=== PATIENT | female | born 1995 | race Caucasian/White ===

== ENCOUNTER 2017-05-18 18:14 | Emergency (ER) | payer MEDICAID, OTHER ==
[2017-05-18 18:26] VITALS: BP 114/69
[2017-05-18] MEDS ORDERED: NS 0.9% 1000 ML* 1,000 ML IV ONE (19:22)
--- NOTE | 2017-05-18 19:22 | UC ---
- HPI Summary HPI Summary: 22 y/o female presents to the urgent care c/o nausea and vomiting for the past 3 days. Pt is 5 weeks LMP: 03/26/2017. Pt reports every time she tries to eat something she has N/V. Today she had 4 episodes of vomiting. Pt hasn't been able to eat anything, feel weak and tire today. Pt denies dizziness , SOB, vaginal bleeding, pelvic pain, abdominals pain, back pain, Hx of STD's. She states mild frequency on urination today w/o any burning or pain. Pt doesn' t have any OBGYN. - History of Current Complaint Chief Complaint: UCGI Stated Complaint: VOMITING Time Seen by Provider: 05/18/17 18:56 Hx Obtained From: Patient Chief Complaint: Other: - nausea and vomting for the past 3 days Onset/Duration: Started Days Ago - 3 days Timing: Intermittent Severity: Mild Current Severity: Moderate - 4 episodes of vomting today Pain Intensity: 0 Location of Pain: None Character: None Aggravating Factors: Other: - eating Associated Signs and Symptoms: Positive: Nausea, Urinary Symptoms - frequency on urination, Vomiting. Negative: Back Pain, Fever, Genital Swelling or Blisters, Vaginal Bleeding or Discharge - Assessment Hx Now: Yes Hx : 3 Hx Para: 1 SAB: 1 IEA: 0 History of Ectopic : No Hx Pelvic Inflammatory Disease: No Vaginal Bleeding Amount: None Hx Last Menstrual Period: 03/26/17 History of STI/STD: No - Risk Factors Ectopic Risk Factor: Negative - Additional Pertinent History Maternal Blood Type and Rh: A Positive - Allergies/Home Medications Allergies/Adverse Reactions: Allergies Allergy/AdvReac Type Severity Reaction Status Date / Time Amoxicillin Allergy Unknown Verified 05/18/17 18:16 Reaction Details Penicillins Allergy Unknown Verified 05/18/17 18:16 Reaction Details PMH/Surg Hx/FS Hx/Imm Hx Previously Healthy: Yes Endocrine/Hematology History: Denies: Hx Diabetes, Hx Thyroid Disease Cardiovascular History: Denies: Hx Hypertension Respiratory History: Denies: Hx Asthma, Hx Chronic Obstructive Pulmonary Disease (COPD) GI History: Denies: Hx Ulcer - Immunization History Immunizations Up to Date: Yes Infectious Disease History: No Infectious Disease History: Denies: Hx Clostridium Difficile, Hx Hepatitis, Hx Human Immunodeficiency Virus (HIV), Hx of Known/Suspected MRSA, Hx Shingles, Hx Tuberculosis, Hx Known/ Suspected VRE, Hx Known/Suspected VRSA, History Other Infectious Disease, Traveled Outside the [place] in Last 30 Days - Family History Known Family History: Positive: None - Pt denies any FMHX Negative: Cardiac Disease, Hypertension, Respiratory Disease, Seizure Disorder - Social History Occupation: Unemployed Lives: With Family Alcohol Use: None Hx Substance Use: No Substance Use Type: Reports: None Hx Tobacco Use: No Smoking Status (MU): Never Smoked Tobacco Have You Smoked in the Last Year: No Household Exposure: No Review of Systems Constitutional: Negative Skin: Negative Eyes: Negative ENT: Negative Respiratory: Negative Cardiovascular: Negative Gastrointestinal: Vomiting, Nausea Genitourinary: Negative Motor: Negative Neurovascular: Negative Musculoskeletal: Negative Neurological: Negative Psychological: Negative Is Patient Immunocompromised?: No All Other Systems Reviewed And Are Negative: Yes Physical Exam - Physical Exam Triage Information Reviewed: Yes Vital Signs Reviewed: Yes Appearance: Positive: Well-Appearing, No Pain Distress, Well-Nourished, Thin Skin: Positive: Warm, Skin Color Reflects Adequate Perfusion, Other - oral mucosa is moist Head/Face: Positive: Normal Head/Face Inspection Eyes: Positive: Normal, EOMI, NOEMÍ, Conjunctiva Clear ENT: Positive: Normal ENT inspection, Hearing grossly normal, Pharynx normal, TMs normal Neck: Positive: Supple, Nontender, No Lymphadenopathy Respiratory/Lung Sounds: Positive: Clear to Auscultation, Breath Sounds Present Cardiovascular: Positive: Normal, RRR, Pulses are Symmetrical in both Upper and Lower Extremities, S1, S2 Abdomen Description: Positive: Nontender, No Organomegaly, Soft. Negative: CVA Tenderness (R), CVA Tenderness (L) Bowel Sounds: Positive: Present Musculoskeletal: Positive: Normal, Strength/ROM Intact Neurological: Positive: Normal, Sensory/Motor Intact, Alert, Oriented to Person Place, Time, CN Intact II-III, Reflexes Intact Psychiatric: Positive: Normal Course/Dx - Course Course Of Treatment: 22 y/o female presents to the urgent care c/o nausea and vomiting for the past 3 days. Pt is 5 weeks LMP: 03/26/2017. Pt reports every time she tries to eat something she has N/V. Today she had 4 episodes of vomiting. Pt hasn't been able to eat anything, feel weak and tire today. Pt denies dizziness, SOB, vaginal bleeding, pelvic pain, abdominals pain , back pain, Hx of STD's. She states mild frequency on urination today w/o any burning or pain. Pt doesn't have any OBGYN.HX obtained, UA ordered. Result: Positive Ketones 3+, bilirubin 3+, Glucose 1+. test: positive. Pt mildly dehydrated. IV fluids ordered. Pt tolerated well IV fluid, still with nausea, but felt better. D/C home with Rx Diglegis. Pt given referral for OBGYN. Advised to f/u for further evaluation and treatment on her . Advised if vomiting increases despite the medication and you become dizzy please go immediately to the ER for further management. Pt understood and agreed with D/C plan. left the clinic hemodinamically stable, A&OX3. ambulating. - Differential Diagnosis/HQI/PQRI: Hyperemesis Gravidarum, Early , Renal Colic, UTI, Vaginal Bleeding - Diagnoses Provider Diagnoses: Nausea and vomiting during - Provider Notifications Discussed Care Of Patient With: Aren Katz - DR Katz agreed with PT's care and plan Discharge - Discharge Plan Condition: Stable Disposition: HOME Prescriptions: Doxylamine/Pyridoxine(NF) [Diclegis (NF)] 1 tab PO QPM #19 tab Patient Education Materials: Hyperemesis Gravidarum (ED) Referrals: [facility] [place] PHYSICIAN REFERRAL [Outside] - 2 Days Jackie Walters MD [Medical Doctor] - 2 Days No Primary Care Phys,NOPCP [Primary Care Provider] - Additional Instructions: 1-Please f/u with OBGYN Dr Stokes for further evaluation and treatment on your . Try to increase fluid intake and east small soft meals every 2hrs. 2- Please take medications as directed to alleviate nausea and vomiting 3- If vomiting increases despite the medication and you become dizzy please go immediately to the ER for further management.
--- NOTE | 2017-05-21 11:31 | UC ---
Progress - Progress Note Progress Note: Called today because the Diclegis prescribed is not covered by insurance. Ongoing nausea, last emesis yesterday. Will provide a small number of zofran, but must follow up with her hand hardener regarding management.
== END 2017-05-18 20:35 | disposition home or self-care (01) ==
LOC: UCEAST 18:14
DX: O20.9 Hemorrhage in early pregnancy, unspecified (principal); Z3A.01 Less than 8 weeks gestation of pregnancy; Z88.0 Allergy status to penicillin
CPT/HCPCS: 81003; 84702; 96360; 96361; 99212; G0463

== ENCOUNTER 2017-08-15 20:22 | Emergency (ER) | payer OTHER ==
[2017-08-15] MEDS ORDERED: Acetaminophen TAB* 325 MG PO ONE (21:07)
[2017-08-15] MEDS ORDERED: Metoclopramide IV* 5 MG/ML 2 ML VIAL IV SLOW PU ONE (21:07)
[2017-08-15 21:38] LABS: Hematocrit 35 % (35-47); Hemoglobin 11.8 g/dl (12.0-16.0); Mean Corpuscular HGB Conc 34 g/dl (31-36); Mean Corpuscular Hemoglobin 30 pg (27-31); Mean Corpuscular Volume 87 fL (80-97); Mean Platelet Volume 8 um3 (7.4-10.4); Red Blood Count 3.99 10^6/ul (4.0-5.4); Red Cell Distribution Width 13 % (10.5-15); White Blood Count 11.4 10^3/ul (3.5-10.8)
[2017-08-15 21:43] LABS: Urine Bilirubin Negative (Negative); Urine Glucose Negative (Negative); Urine Nitrite Negative (Negative)
[2017-08-15 21:53] LABS: Albumin 3.6 g/dL (3.2-5.2); BUN/Creatinine Ratio 12.5 (8-20); Calcium 8.9 mg/dL (8.6-10.3); EGFR African American 177.5 (>60); Globulin 2.9 g/dL (2-4); Potassium 3.4 mmol/L (3.5-5.0); Total Bilirubin 0.2 mg/dL (0.2-1.0); Total Protein 6.5 g/dL (6.4-8.9)
[2017-08-15 22:56] VITALS: BP 119/68
--- NOTE | 2017-08-16 08:23 | RAD ---
HISTORY: Left lower quadrant pain, . The gestational age by dates is: 20 weeks, 2 days COMPARISONS: None available at the time of dictation. TECHNIQUE: Multiple transverse and longitudinal ultrasound images were obtained of the gravid uterus using Grayscale, and M-mode Doppler imaging. FINDINGS: /PLACENTAL EVALUATION: Number of fetuses: Single Presentation: Breech cardiac activity: 136 bpm Gross motion: Observed Placenta position: Anterior Amniotic fluid volume: Normal BIOMETRY: Biparietal diameter: 4.62 cm 20 weeks, 0 days Head circumference: 18.33 cm 20 weeks, 5 days Abdominal circumference: 15.05 cm 20 weeks, 3 days Femur length: 3.35 cm 20 weeks, 4 days HC/AC: 1.22 Estimated weight: 351 grams, +/- 52 grams GESTATIONAL AGE: The composite gestational age is: 20 weeks, 3 days. The MICHELLE is: December 30, 2017. This is concordant with age by dates ANATOMY: Anatomy evaluation was performed CERVIX: The cervix is closed without funneling.. The cervix measures 2.6 cm. OTHER: None IMPRESSION: 1. SINGLE LIVE INTRAUTERINE GESTATION IN BREECH PRESENTATION AT 20 WEEKS AND 3 DAYS BY COMPOSITE GESTATIONAL AGE. 2. SHORT CERVIX
--- NOTE | 2017-08-22 05:19 | ED ---
Tyson Lawson Benjamin, scribed for Michel Knapp MD on 08/15/17 at 2050 . GI/ HPI - HPI Summary HPI Summary: 22yo female who is 20 weeks presents to ED with LUQ and left pelvic pain and dizziness for a week. Pt describes her dizziness as a combination of room spinning and near syncopal. Pt has been having acid reflux for a week as well. Pt also vomited once en route. Pt denies any vaginal discharge or bleeding but reports little bits of cramping. No urinary symptoms. This is pts 2nd . G2T1L1. - History of Current Complaint Chief Complaint: EDAbdPain Time Seen by Provider: 08/15/17 20:31 Stated Complaint: 20 WKS PREG/CRAMPING/VOMITING Hx Obtained From: Patient, Family/Supervisor [employer]aving And Splitting - family Hx Last Menstrual Period: 03/26/17 Onset/Duration: Started Days Ago, Still Present Timing: Intermittent Severity: Moderate Current Severity: Moderate Pain Intensity: 6 Location of Pain: LUQ, LLQ, Epigastric Pain Characteristics: Cramping Associated Signs and Symptoms: Positive: Dizziness, Nausea, Vomiting, Abdominal Pain. Negative: Diarrhea, Fever, Hematuria, Dysuria Additional Signs & Symptoms: Negative: Vaginal Bleeding, Vaginal Discharge - Allergy/Home Medications Allergies/Adverse Reactions: Allergies Allergy/AdvReac Type Severity Reaction Status Date / Time Amoxicillin Allergy Unknown Verified 08/15/17 20:45 Reaction Details Penicillins Allergy Unknown Verified 08/15/17 20:45 Reaction Details PMH/Surg Hx/FS Hx/Imm Hx Endocrine/Hematology History: Denies: Hx Diabetes, Hx Thyroid Disease Cardiovascular History: Denies: Hx Hypertension Respiratory History: Denies: Hx Asthma, Hx Chronic Obstructive Pulmonary Disease (COPD) GI History: Denies: Hx Ulcer Infectious Disease History: No Infectious Disease History: Denies: Hx Clostridium Difficile, Hx Hepatitis, Hx Human Immunodeficiency Virus (HIV), Hx of Known/Suspected MRSA, Hx Shingles, Hx Tuberculosis, Hx Known/ Suspected VRE, Hx Known/Suspected VRSA, History Other Infectious Disease, Traveled Outside the [place] in Last 30 Days - Family History Known Family History: Negative: Cardiac Disease, Hypertension, Respiratory Disease, Seizure Disorder - Social History Lives: With Family Alcohol Use: None Hx Substance Use: No Substance Use Type: Reports: None Hx Tobacco Use: No Smoking Status (MU): Never Smoked Tobacco Have You Smoked in the Last Year: No Review of Systems Constitutional: Negative Negative: Fever Eyes: Negative ENT: Negative Cardiovascular: Negative Respiratory: Negative Positive: Abdominal Pain, Vomiting, Nausea. Negative: Diarrhea Genitourinary: Negative Positive: no symptoms reported Musculoskeletal: Negative Skin: Negative Neurological: Other - room spinning Positive: Syncope - near Psychological: Normal All Other Systems Reviewed And Are Negative: Yes Physical Exam - Summary Physical Exam Summary: VITAL SIGNS: Reviewed. GENERAL: ~Patient is a well-developed and nourished FEMALE who is lying comfortable in the stretcher. Patient is not in any acute respiratory distress. HEAD AND FACE: No signs of trauma. No ecchymosis, hematomas or skull depressions. No sinus tenderness. EYES: PERRLA, EOMI x 2, No injected conjunctiva, no nystagmus. EARS: Hearing grossly intact. Ear canals and tympanic membranes are within normal limits. MOUTH: Oropharynx within normal limits. NECK: Supple, trachea is midline, no adenopathy, no JVD, no carotid bruit, no c- spine tenderness, neck with full ROM. CHEST: Symmetric, no tenderness at palpation LUNGS: Clear to auscultation bilaterally. No wheezing or crackles. CVS: Regular rate and rhythm, S1 and S2 present, no murmurs or gallops appreciated. ABDOMEN: Soft, LUQ tenderness. No signs of distention. No rebound no guarding, and no masses palpated. Bowel sounds are normal. Fundal level in umbilicus. EXTREMITIES: FROM in all major joints, no edema, no cyanosis or clubbing. NEURO: Alert and oriented x 3. No acute neurological deficits. Speech is normal and follows commands. SKIN: Dry and warm Triage Information Reviewed: Yes Vital Signs On Initial Exam: Initial Vitals Temp Pulse Resp BP Pulse Ox 97.8 F 92 16 144/74 100 08/15/17 20:25 08/15/17 20:25 08/15/17 20:25 08/15/17 20:25 08/15/17 20:25 Vital Signs Reviewed: Yes - [place] Coma Scale Coma Scale Total: 15 Diagnostics - Vital Signs Vital Signs Temp Pulse Resp BP Pulse Ox 08/15/17 20:47 127/80 08/15/17 20:25 97.8 F 92 16 144/74 100 - Laboratory Result Diagrams: 08/15/17 21:27 08/15/17 21:27 Lab Statement: Any lab studies that have been ordered have been reviewed, and results considered in the medical decision making process. - Ultrasound No standard instances Ultrasound Interpretation: No Acute Changes Ultrasound Interpretation Completed By: Radiologist - ED physician has reviewed this radiology report and agrees. Re-Evaluation - Re-Evaluation First Eval Re-Evaluation Time: 22:48 Change: Improved Comment: Dizziness is improved. Reviewed pt's bloodwork abnd US report. GIGU Course/Dx - Course Course Of Treatment: Dizziness is improved. Reviewed pt's bloodwork abnd US report. - Diagnoses Provider Diagnoses: Dizziness, Second trimester Discharge - Discharge Plan Condition: Stable Disposition: HOME Patient Education Materials: (ED), Dizziness (ED) Referrals: No Primary Care Phys,NOPCP [Primary Care Provider] - Jackie Walters MD [Medical Doctor] - Additional Instructions: RETURN TO EMERGENCY DEPARTMENT FOR ANY NEW OR WORSENING SYMPTOMS The documentation as recorded by the Tyson moya Benjamin accurately reflects the service I personally performed and the decisions made by , Michel Knapp MD.
== END 2017-08-15 22:54 | disposition home or self-care (01) ==
LOC: ED 20:22
DX: O26.92 Pregnancy related conditions, unspecified, second trimester (principal); R42 Dizziness and giddiness; Z3A.20 20 weeks gestation of pregnancy; Z88.0 Allergy status to penicillin
CPT/HCPCS: 36415; 76815; 80053; 81003; 85025; 99282; A9270-GY; J2765

== ENCOUNTER 2017-09-06 16:03 | Emergency (ER) | payer OTHER ==
--- NOTE | 2017-09-06 17:39 | RAD ---
INDICATION: Right leg pain. COMPARISON: There are no prior studies available for comparison. TECHNIQUE: Multiple real-time, color flow and Doppler tracings of the right lower extremity were obtained. FINDINGS: The common femoral, femoral, profunda femoral and popliteal veins all demonstrate normal compressibility, augmentation with compression and phasic response with respiration. The posterior tibial and peroneal veins demonstrate normal compressibility and augmentation with compression. IMPRESSION: NO EVIDENCE FOR DEEP VENOUS THROMBOSIS.
[2017-09-06 17:52] LABS: ABS Basophils 0 10^3/ul (0-0.2); ABS Eosinophils 0.1 10^3/ul (0-0.6); ABS Lymphocytes 2.4 10^3/ul (1.0-4.8); ABS Monocytes 0.8 10^3/ul (0-0.8); ABS Neutrophils 7.8 10^3/ul (1.5-7.7); ABS Nucleated RBC 0.01 10^3/ul; Eosinophil % 0.7 % (0-6); Hematocrit 35 % (35-47); Hemoglobin 11.6 g/dl (12.0-16.0); Lymphocyte % 21.9 % (25-47); Mean Corpuscular HGB Conc 33 g/dl (31-36); Mean Corpuscular Hemoglobin 29 pg (27-31); Mean Corpuscular Volume 87 fL (80-97); Mean Platelet Volume 8 um3 (7.4-10.4); Nucleated Red Blood Cells % 0; Platelet Count 267 10^3/ul (150-450); Red Blood Count 4.02 10^6/ul (4.0-5.4); Red Cell Distribution Width 13 % (10.5-15); White Blood Count 11.1 10^3/ul (3.5-10.8)
[2017-09-06 17:58] LABS: INR 0.9 (0.77-1.02)
[2017-09-06 18:04] LABS: EGFR Non-African American 132.5 (>60)
[2017-09-06 18:31] VITALS: BP 108/65
--- NOTE | 2017-09-06 18:37 | ED ---
Moustapha Lawson Angela, scribed for Jessy Gonsalez MD on 09/06/17 at 1701 . Lower Extremity - HPI Summary HPI Summary: This pt is a 22 y/o female, currently 23 weeks , presenting to [facility] c/o right leg pain x6 days (since , 08/31/17). Pt was sent to the ED by her Php Architect to rule out DVT. Per Php Architect Angela BEATTY, pt has placenta previa and has been having dizziness episodes. Pt is due on December 31, 2017. Pt reports she originally had a bruise on her right thigh but has now resolved. She states her pain is from he right upper thigh down to her calf. Pt additionally notes it is harder to breathe, but denies SOB. [facility] [place] Pt reports she has been having dizzy spells before her leg pain began, throughout her . She was referred to a trim setter for this. Pt was seen by Dr. Adalberto Ravi on 09/01/17 who recommended a stress test and holter monitor. Pt has a stress test scheduled for tomorrow. Pt takes vitamins every day. Allergies: amoxicillin and penicillin. She denies FHx of blood clots. - History of Current Complaint Chief Complaint: EDExtremityLower Stated Complaint: PAIN IN LT LEG/23 WKS PREG Time Seen by Provider: 09/06/17 16:10 Hx Obtained From: Patient, Other: - Angela, director presales at [place] [employer] Hx Last Menstrual Period: 03/26/17 Mechanism Of Injury: Other - no trauma Onset of Pain: Days - 6 Onset/Duration: Days - 6 Severity Initially: Moderate Severity Currently: Moderate Pain Intensity: 8 Pain Scale Used: 0-10 Numeric Timing: Lasting Days - 6 Location: Is Discrete @ - right leg Character Of Pain: Aching Associated Signs And Symptoms: Positive: Bruising, Dizziness, Other - harder to breathe Aggravating Factor(s): Nothing Alleviating Factor(s): Nothing Able to Bear Weight: Yes Related History: Other - 23 weeks - Allergies/Home Medications Allergies/Adverse Reactions: Allergies Allergy/AdvReac Type Severity Reaction Status Date / Time Amoxicillin Allergy Unknown Verified 08/15/17 20:45 Reaction Details Penicillins Allergy Unknown Verified 08/15/17 20:45 Reaction Details PMH/Surg Hx/FS Hx/Imm Hx Previously Healthy: Yes Endocrine/Hematology History: Denies: Hx Diabetes, Hx Thyroid Disease Cardiovascular History: Denies: Hx Hypertension Respiratory History: Denies: Hx Asthma, Hx Chronic Obstructive Pulmonary Disease (COPD) GI History: Denies: Hx Ulcer - Surgical History Surgery Procedure, Year, and Place: none Infectious Disease History: No Infectious Disease History: Denies: Hx Clostridium Difficile, Hx Hepatitis, Hx Human Immunodeficiency Virus (HIV), Hx of Known/Suspected MRSA, Hx Shingles, Hx Tuberculosis, Hx Known/ Suspected VRE, Hx Known/Suspected VRSA, History Other Infectious Disease, Traveled Outside the [place] in Last 30 Days - Family History Known Family History: Positive: Other - No FHx of blood clots Negative: Cardiac Disease, Hypertension, Respiratory Disease, Seizure Disorder - Social History Lives: With Family Alcohol Use: None Hx Substance Use: No Substance Use Type: Reports: None Hx Tobacco Use: No Smoking Status (MU): Never Smoked Tobacco Have You Smoked in the Last Year: No Review of Systems Negative: Fever, Chills Negative: Chest Pain Respiratory: Other - harder to breathe Musculoskeletal: Other - right leg pain Positive: Bruising Neurological: Other - dizziness Psychological: Normal All Other Systems Reviewed And Are Negative: Yes Physical Exam - Summary Physical Exam Summary: Appearance: Well-appearing, mod pain distress, Well-nourished, Skin: Warm, color reflects adequate perfusion Head: Normal Head/Face inspection Eyes: Conjunctiva clear ENT: Normal ENT inspection Neck: Supple Respiratory: Lungs clear, Normal breath sounds, no respiratory distress Cardio: RRR, No murmur, pulses normal, brisk capillary refill Abdomen: soft, nontender, Musculoskeletal: Strength Intact/ ROM intact. No edema. Tenderness on the medial thigh into the medial calf, proximal third of the calf. More tender on the medial aspect of the right knee and the tibia. No ecchymosis. No warmth. No red streaks. Neuro: Alert, muscle tone normal, facial symmetry, speech normal, sensory/motor intact Psychological: Normal Triage Information Reviewed: Yes Vital Signs On Initial Exam: Initial Vitals Temp Pulse Resp BP Pulse Ox 99.1 F 93 18 120/71 100 09/06/17 16:07 09/06/17 16:07 09/06/17 16:07 09/06/17 16:07 09/06/17 16:07 Vital Signs Reviewed: Yes Diagnostics - Vital Signs Vital Signs Temp Pulse Resp BP Pulse Ox 09/06/17 16:07 99.1 F 93 18 120/71 100 - Laboratory Lab Results: Lab Results 09/06/17 09/06/17 09/06/17 Range/Units 17:36 17:36 17:36 WBC 11.1 H (3.5-10.8) 10^3/ul RBC 4.02 (4.0-5.4) 10^6/ul Hgb 11.6 L (12.0-16.0) g/dl Hct 35 (35-47) % MCV 87 (80-97) fL MCH 29 (27-31) pg MCHC 33 (31-36) g/dl RDW 13 (10.5-15) % Plt Count 267 (150-450) 10^3/ul MPV 8 (7.4-10.4) um3 Neut % (Auto) 70.0 (38-83) % Lymph % (Auto) 21.9 L (25-47) % [place] % (Auto) 7.0 (1-9) % Eos % (Auto) 0.7 (0-6) % Baso % (Auto) 0.4 (0-2) % Absolute Neuts (auto) 7.8 H (1.5-7.7) 10^3/ul Absolute Lymphs (auto) 2.4 (1.0-4.8) 10^3/ul Absolute Monos (auto) 0.8 (0-0.8) 10^3/ul Absolute Eos (auto) 0.1 (0-0.6) 10^3/ul Absolute Basos (auto) 0 (0-0.2) 10^3/ul Absolute Nucleated RBC 0.01 10^3/ul Nucleated RBC % 0 INR (Anticoag Therapy) 0.90 (0.77-1.02) Sodium 134 (133-145) mmol/L Potassium 3.8 (3.5-5.0) mmol/L Chloride 104 (101-111) mmol/L Carbon Dioxide 25 (22-32) mmol/L Anion Gap 5 (2-11) mmol/L BUN 9 (6-24) mg/dL Creatinine 0.58 (0.51-0.95) mg/dL Est GFR ( Amer) 170.5 (>60) Est GFR (Non-Af Amer) 132.5 (>60) BUN/Creatinine Ratio 15.5 (8-20) Glucose 78 (70-100) mg/dL Calcium 9.2 (8.6-10.3) mg/dL Total Bilirubin 0.20 (0.2-1.0) mg/dL AST 14 (13-39) U/L ALT 8 (7-52) U/L Alkaline Phosphatase 38 (34-104) U/L Total Protein 6.9 (6.4-8.9) g/dL Albumin 3.8 (3.2-5.2) g/dL Globulin 3.1 (2-4) g/dL Albumin/Globulin Ratio 1.2 (1-3) Result Diagrams: 09/06/17 17:36 09/06/17 17:36 Lab Statement: Any lab studies that have been ordered have been reviewed, and results considered in the medical decision making process. - Additional Comments Diagnostic Additional Comments: Venous Doppler Study, Right, as read by radiologist: IMPRESSION: No evidence for deep venous thrombosis. Dr. Gonsalez has reviewed this radiology report. Re-Evaluation - Re-Evaluation First Eval Re-Evaluation Time: 18:23 Change: Unchanged Comment: I reviewed the doppler venous study with the pt. Lower Extremity Course/Dx - Course Course Of Treatment: Pt medications reviewed this visit. Allergies noted. Deep venous study shows no evidence for deep venous thrombosis. I reviewed the deep venous doppler study results with the pt. Pt is advised to follow up with her ObGyn as scheduled. Pt understands and is agreeable with the discharge plan. She will follow up with the cardiac evaluation as recommended. - Diagnoses Differential Diagnosis/HQI/PQRI: Positive: Cellulitis, Contusion, DVT, Sprain, Strain Provider Diagnoses: Pain in right lower leg, Discharge - Discharge Plan Condition: Stable Disposition: HOME Patient Education Materials: Leg Pain (ED) Referrals: Kamilla Dotson MD [Medical Doctor] - If Needed Additional Instructions: Return to the ER if any new or worsening symptoms. The documentation as recorded by the Moustapha moya Angela accurately reflects the service I personally performed and the decisions made by Wallace seo Barbara J, MD.
== END 2017-09-06 18:30 | disposition home or self-care (01) ==
LOC: ED 16:03
DX: M79.661 Pain in right lower leg (principal); Z34.92 Encounter for supervision of normal pregnancy, unspecified, second trimester; R42 Dizziness and giddiness
CPT/HCPCS: 36415; 80053; 85025; 85610; 99281

== ENCOUNTER 2017-12-28 01:05 | Inpatient (IN) | payer OTHER ==
[2017-12-28] MEDS ORDERED: Ammonia Inhalant* 1 EA AMP ONE (04:45)
[2017-12-28] MEDS ORDERED: Witch Hazel PAD* JAR ONE (04:46)
[2017-12-28] MEDS ORDERED: Dibucaine 1% 28.35 GM TUBE ONE (04:46)
[2017-12-28] MEDS ORDERED: Ibuprofen TAB* 600 MG ONE (04:46)
[2017-12-28] MEDS ORDERED: Witch Hazel PAD* JAR TOPICAL PRN (04:52)
[2017-12-28] MEDS ORDERED: Acetaminophen TAB* 325 MG PO PRN (04:53)
[2017-12-28] MEDS ORDERED: Hydrocortisone 1% CREAM* 30 GM TUBE TOPICAL PRN (04:53)
[2017-12-28] MEDS ORDERED: Dibucaine 1% 28.35 GM TUBE TOPICAL PRN (04:54)
[2017-12-28] MEDS ORDERED: Ibuprofen TAB* 600 MG PO PRN (04:54)
[2017-12-28] MEDS ORDERED: PROCHLORPERAZINE INJ 5 MG/ML 2 ML VIAL IV PRN (04:55)
[2017-12-28] MEDS ORDERED: Simethicone TAB* 80 MG TAB.CHEW PO PRN (04:56)
[2017-12-28] MEDS ORDERED: Buffered Lidocaine 0.9% SYRIN* 5 ML/SYR SYRINGE INJ PRN (04:57)
[2017-12-28] MEDS ORDERED: Glycerin ADULT SUPP PR PRN (04:57)
[2017-12-28] MEDS ORDERED: Varicella Virus Vaccine Live* 0.5 ML VIAL SUBCUT ONE (05:00)
[2017-12-28] MEDS: Docusate CAP* 100 MG PO SCH ×2 (08:55→14:40)
[2017-12-28] MEDS ORDERED: Ferrous Gluconate TAB* 324 MG TAB PO SCH (09:00)
--- NOTE | 2017-12-28 10:48 | HP ---
General Information - General Information Maternal Age: 22 Grav: 3 Para: 1 SAB: 0 IEA: 1 Estimated Due Date: 12/31/17 Determined By: LMP Gestational Age in Weeks and Days: 39 Weeks and 4 Days Maternal Blood Type and Rh: A Positive - Results this Serology/RPR Result: Non-Reactive Rubella Result: Immune HBsAg Result: Negative HIV Result: Negative GBS Culture Result: Negative Past Medical History Delivery History: Hx Uncomplicated Vaginal Delivery Pertinent Past Medical History: Non-Contributory Pertinent Past Surgical History: None Pertinent Family History: Non-Contributory - Antepartal Records Antepartal Records: Reviewed, Uncomplicated Review of Systems Constitutional: Uncomfortable CV Complaint: No Respiratory: Shortness of Breath: No Gastrointestinal: No Nausea/Vomiting Genitourinary: No Dysuria, No Leaking Fluid Musculoskeletal: Back Pain, Contractions Neurological: No Headache Exam Allergies/Adverse Reactions: Allergies amoxicillin Allergy (Verified 12/05/17 14:29) Rash Penicillins Allergy (Verified 12/05/17 14:29) Rash Vital Signs 12/28/17 12/28/17 12/28/17 03:30 04:27 05:30 Temperature 98.7 F 98.3 F 98.8 F Pulse Rate 86 93 88 Respiratory 18 18 18 Rate Blood Pressure 124/76 129/69 118/68 (mmHg) O2 Sat by Pulse 100 100 99 Oximetry 12/28/17 12/28/17 06:30 07:33 Temperature 98.3 F 98.2 F Pulse Rate 88 82 Respiratory 18 18 Rate Blood Pressure 102/50 118/72 (mmHg) O2 Sat by Pulse Oximetry - Measurements Height: 5 ft Weight: 140 lb Weight in lbs: 140 Body Mass Index (BMI): 27.3 Pre- Weight: 107 lb Weight Gained This : 33 lbs and 0 ozs - Cervical Exam 8/100/0 - Abdominal Exam Abdomen Exam: Non-Tender - Membranes Membrane Status: Intact - Ultrasound/Biophysical Profile Ultrasound Status: Not Done EFM Findings - External Monitor Findings Baseline Heart Rate: 120 External Monitor Findings: Accelerations Present, No Pattern of Variable or Late Decelerations, Variability Moderate Contractions: Regular Contraction Frequency: 2-3 Assessment/Plan - Reason for Visit Reason for Visit: Active labor - Plan Plan: Active Labor - Date/Time of Admission Date of Admission: 12/28/17 Time of Admission: 01:00
[2017-12-28] MEDS ORDERED: Ibuprofen ADULT LIQ* 600 MG/30 ML UDC ONE (17:50)
[2017-12-28] MEDS: Ibuprofen ADULT LIQ* 600 MG/30 ML UDC PO PRN (18:05)
[2017-12-29] MEDS: Ibuprofen ADULT LIQ* 600 MG/30 ML UDC PO PRN (05:18)
[2017-12-29 07:49] VITALS: BP 109/69
[2017-12-29 10:15] LABS: Hematocrit 28 % (35-47); Hemoglobin 8.7 g/dl (12.0-16.0)
== END 2017-12-29 10:30 | disposition home or self-care (01) | DRG 560 ==
LOC: MCHOBOUT 01:05 → MCHOB 01:48
PROVIDERS: ADMIT Midwife; ATTEND Midwife
PROC: 10E0XZZ Delivery of Products of Conception, External Approach (ICD-10-PCS; principal; 2017-12-28)
PROC: 4A1HXCZ Monitoring of Products of Conception, Cardiac Rate, External Approach (ICD-10-PCS; 2017-12-28)
DX: O69.1XX0 Labor and delivery complicated by cord around neck, with compression, not applicable or unspecified (principal); O26.873 Cervical shortening, third trimester; Z3A.39 39 weeks gestation of pregnancy; Z37.0 Single live birth; Z88.1 Allergy status to other antibiotic agents; Z88.0 Allergy status to penicillin
CPT/HCPCS: 36415; 85014; 85018; A9270-GY

== ENCOUNTER 2018-02-08 18:38 | Emergency (ER) | payer OTHER ==
[2018-02-08 19:07] VITALS: BP 120/71
--- NOTE | 2018-02-08 19:11 | UC ---
Throat Pain/Nasal Navjot HPI - HPI Summary HPI Summary: 22 yo female presents with sore throat and right ear pain intermittently for 1 month. Has had many sick contacts with various URI symptoms. She has not taken anything OTC. Denies fever, chills, cough, SOB, chest pain, abdominal pain, n/v. - History of Current Complaint Chief Complaint: UCGeneralIllness Stated Complaint: THROAT PAIN Time Seen by Provider: 02/08/18 19:10 Hx Obtained From: Patient Hx Last Menstrual Period: 03/26/17 Onset/Duration: Gradual Onset Severity: Severe Pain Intensity: 8 Pain Scale Used: 0-10 Numeric - Allergies/Home Medications Allergies/Adverse Reactions: Allergies Allergy/AdvReac Type Severity Reaction Status Date / Time amoxicillin Allergy Rash Verified 02/08/18 19:07 Penicillins Allergy Rash Verified 02/08/18 19:07 PMH/Surg Hx/FS Hx/Imm Hx - Additional Past Medical History Additional PMH: None Previously Healthy: Yes - Surgical History Surgical History: None Surgery Procedure, Year, and Place: none - Family History Known Family History: Positive: None - Pt denies any FMHX, Other - No FHx of blood clots Negative: Cardiac Disease, Hypertension, Respiratory Disease, Seizure Disorder - Social History Occupation: Student Lives: With Family Alcohol Use: None Substance Use Type: None Smoking Status (MU): Never Smoked Tobacco Have You Smoked in the Last Year: No - Immunization History Most Recent Influenza Vaccination: 05/12/16 Most Recent Tetanus Shot: unknown Most Recent Pneumonia Vaccination: none Review of Systems Constitutional: Negative Skin: Negative Eyes: Negative ENT: Sore Throat Respiratory: Negative Cardiovascular: Negative Gastrointestinal: Negative Neurovascular: Negative Musculoskeletal: Negative Neurological: Negative Psychological: Negative All Other Systems Reviewed And Are Negative: Yes Physical Exam - Summary Physical Exam Summary: GENERAL: NAD. WDWN. No pain distress. SKIN: No rashes, sores, lesions, or open wounds. HEENT: Head: AT/NC Eyes: Conjunctiva clear without inflammation or discharge. Ears: Hearing grossly normal. TMs intact, no bulging, erythema, or edema. Nose: Nasal mucosa pink and moist. NTTP maxillary and frontal sinus. Throat: Posterior oropharynx mild erythema and 2+ tonsillar enlargement. No exudates. Uvula midline. No hoarse voice or muffled voice. NECK: Supple. Left tonsillar TTP mild LAD. CHEST: CTAB. No r/r/w. No accessory muscle use. Breathing comfortably and in no distress. CV: RRR. Without m/r/g. Pulses intact. Brisk cap refill. NEURO: Alert. CN II-XII grossly intact. PSYCH: Age appropriate behavior. Triage Information Reviewed: Yes Vital Signs: Initial Vital Signs Temp 98.3 F 02/08/18 19:01 Pulse 75 02/08/18 19:01 Resp 20 02/08/18 19:01 BP 120/71 02/08/18 19:01 Pulse Ox 98 02/08/18 19:01 Throat Pain/Nasal Course/Dx - Course Course Of Treatment: POC strep negative. Pharyngitis Rx for zpak - Differential Dx/Diagnosis Provider Diagnoses: Pharyngitis Discharge - Sign-Out/Discharge Documenting (check all that apply): Discharge/Admit/Transfer - Discharge Plan Condition: Stable Disposition: HOME Prescriptions: Azithromycin TAB* [Zithromax TAB (Z-ERIC) 250 mg #6 tabs] 2 tab PO .TODAY, THEN 1 DAILY #1 eric Patient Education Materials: Pharyngitis (ED) Referrals: No Primary Care Phys,NOPCP [Primary Care Provider] - Additional Instructions: If you develop a fever, shortness of breath, chest pain, new or worsening symptoms - please call your PCP or go to the ED. - Billing Disposition and Condition Condition: STABLE Disposition: HOME
== END 2018-02-08 19:40 | disposition home or self-care (01) ==
LOC: UCEAST 18:38
DX: J02.9 Acute pharyngitis, unspecified (principal); Z88.3 Allergy status to other anti-infective agents; Z88.0 Allergy status to penicillin
CPT/HCPCS: 87651; 99202; G0463

== ENCOUNTER 2018-03-21 11:54 | Emergency (ER) | payer OTHER ==
--- NOTE | 2018-03-21 12:45 | ED ---
GI/ HPI - HPI Summary HPI Summary: This pt is a 23 y/o female presenting [facility] c/o vaginal bleeding s/p IUD placement 1 month ago. Pt states she had Larissa IUD placed 1 month ago and ever since she has had heavy vaginal bleeding. She denies spotting and notes she has had to use a tampon every 4 hours (normally she changes tampon every 7 hours with period). Pt did go see the provider who placed her IUD and was told that this was normal. Additionally reports lower abd pain. Denies weakness, lightheadedness, dizziness, fever. Pt is requesting to have her IUD removed today. - History of Current Complaint Chief Complaint: EDVaginalBleeding Stated Complaint: VAGINAL BLEEDING Hx Obtained From: Patient Hx Last Menstrual Period: 03/26/17 Onset/Duration: Started Weeks Ago, Still Present Timing: Lasting Weeks Current Severity: Moderate Vaginal Bleeding Description: Bright Red Pain Intensity: 7 Location of Pain: Diffuse Associated Signs and Symptoms: Negative: Dizziness, Weakness, Fever, Chills, Lightheadedness Additional Signs & Symptoms: Positive: Vaginal Bleeding, IUD - s/p IUD placement Aggravating Factor(s): Nothing Alleviating Factor(s): Nothing - Allergy/Home Medications Allergies/Adverse Reactions: Allergies Allergy/AdvReac Type Severity Reaction Status Date / Time amoxicillin Allergy Rash Verified 03/21/18 12:22 Penicillins Allergy Rash Verified 03/21/18 12:22 PMH/Surg Hx/FS Hx/Imm Hx Endocrine/Hematology History: Denies: Hx Diabetes, Hx Thyroid Disease Cardiovascular History: Denies: Hx Hypertension Respiratory History: Denies: Hx Asthma, Hx Chronic Obstructive Pulmonary Disease (COPD) GI History: Denies: Hx Ulcer - Surgical History Surgery Procedure, Year, and Place: none Infectious Disease History: No Infectious Disease History: Denies: Hx Clostridium Difficile, Hx Hepatitis, Hx Human Immunodeficiency Virus (HIV), Hx of Known/Suspected MRSA, Hx Shingles, Hx Tuberculosis, Hx Known/ Suspected VRE, Hx Known/Suspected VRSA, History Other Infectious Disease, Traveled Outside the [place] in Last 30 Days - Family History Known Family History: Positive: Other - No FHx of blood clots Negative: Cardiac Disease, Hypertension, Respiratory Disease, Seizure Disorder - Social History Alcohol Use: None Hx Substance Use: No Substance Use Type: Reports: None Hx Tobacco Use: No Smoking Status (MU): Never Smoked Tobacco Have You Smoked in the Last Year: No Review of Systems Negative: Fever, Chills Cardiovascular: Negative Respiratory: Negative Positive: Abdominal Pain Genitourinary: Other - vaginal bleeding Neurological: Other - NEGATIVE: lightheadedness, dizziness Negative: Weakness All Other Systems Reviewed And Are Negative: Yes Physical Exam - Summary Physical Exam Summary: Appearance: Well appearing, no pain distress Skin: warm, dry, reflects adequate perfusion Head/face: normal Eyes: EOMI, NOEMÍ ENT: normal Neck: supple, non-tender Respiratory: CTA, breath sounds present Cardiovascular: RRR, pulses symmetrical Abdomen: non-tender, soft Bowel: present Musculoskeletal: normal, strength/ROM intact Neuro: normal, sensory motor intact, A&Ox3 Triage Information Reviewed: Yes Vital Signs On Initial Exam: Initial Vitals Temp Pulse Resp BP Pulse Ox 97.8 F 81 17 121/74 100 03/21/18 12:19 03/21/18 12:19 03/21/18 12:19 03/21/18 12:19 03/21/18 12:19 Vital Signs Reviewed: Yes Procedures - Procedure Summary Procedure Summary: IUD removal: Patient presented requesting IUD removal. She is aware that she will need to seek control options from her [employer] ENGINEER. She verbally requested this and procedure will be performed. She was placed in lithotomy position and a speculum was inserted. There was minimal to no bleeding. IUD wires were visible and were grasped with ring forceps. Gentle traction remove the IUD intact. She tolerated this well without complications. Diagnostics - Vital Signs Vital Signs Temp Pulse Resp BP Pulse Ox 03/21/18 12:19 97.8 F 81 17 121/74 100 - Laboratory Lab Statement: Any lab studies that have been ordered have been reviewed, and results considered in the medical decision making process. GIGU Course/Dx - Course Course Of Treatment: Patient presented with request for IUD removal due to bleeding for the last month since its insertion. Bleeding was found to be minimal here. IUD was removed intact. - Diagnoses Provider Diagnoses: Vaginal bleeding, Encounter for IUD removal Discharge - Sign-Out/Discharge Documenting (check all that apply): Patient Departure - Discharge - Discharge Plan Condition: Good Disposition: HOME Patient Education Materials: Barrier Methods of Contraception (ED), Emergency Contraception (ED) Referrals: No Primary Care Phys,NOPCP [Primary Care Provider] - [facility] [Outside] Additional Instructions: Please follow up with your primary care provider. RETURN TO THE ED FOR ANY WORSENING OR NEW SYMPTOMS. - Billing Disposition and Condition Condition: GOOD Disposition: Home
[2018-03-21 12:53] VITALS: BP 127/77
== END 2018-03-21 12:55 | disposition home or self-care (01) ==
LOC: ED 11:54
DX: N93.9 Abnormal uterine and vaginal bleeding, unspecified (principal); R10.30 Lower abdominal pain, unspecified; Z30.432 Encounter for removal of intrauterine contraceptive device; Z88.3 Allergy status to other anti-infective agents; Z88.0 Allergy status to penicillin
CPT/HCPCS: 99281

== ENCOUNTER 2018-05-16 15:23 | Emergency (ER) | payer OTHER ==
--- NOTE | 2018-05-16 16:56 | RAD ---
INDICATION: Chest pain COMPARISON: Similar chest x-ray dated September 12, 2015 TECHNIQUE: PA and lateral views of the chest were obtained. FINDINGS: The heart and mediastinum are normal in size and contour. The lungs are grossly clear. There is no evidence of large pleural effusion. Visualized bones are normal for the patient's age. There is no radiographic evidence of free air beneath the diaphragm IMPRESSION: No radiographic evidence of acute cardiopulmonary disease.
[2018-05-16 17:02] LABS: EGFR Non-African American 102.3 (>60)
[2018-05-16 17:08] LABS: ABS Basophils 0.1 10^3/ul (0-0.2); ABS Eosinophils 0.1 10^3/ul (0-0.6); ABS Lymphocytes 2.6 10^3/ul (1.0-4.8); ABS Monocytes 0.6 10^3/ul (0-0.8); ABS Nucleated RBC 0 10^3/ul; Eosinophil % 0.8 % (0-6); Hematocrit 38 % (35-47); Hemoglobin 11.8 g/dl (12.0-16.0); Lymphocyte % 35.4 % (25-47); Mean Corpuscular HGB Conc 31 g/dl (31-36); Mean Corpuscular Hemoglobin 23 pg (27-31); Mean Corpuscular Volume 74 fL (80-97); Mean Platelet Volume 7.7 um3 (7.4-10.4); Nucleated Red Blood Cells % 0.1; Platelet Count 393 10^3/ul (150-450); Red Blood Count 5.09 10^6/ul (4.00-5.40); Red Cell Distribution Width 18 % (10.5-15); White Blood Count 7.4 10^3/ul (3.5-10.8)
[2018-05-16 18:32] VITALS: BP 137/82
[2018-05-16] MEDS ORDERED: Ibuprofen TAB* 600 MG PO ONE (19:01)
--- NOTE | 2018-05-16 19:06 | ED ---
Neurological HPI - HPI Summary HPI Summary: Patient complains of right eye twitching, heaviness in right arm and right leg 3 days and intermittent chest pain times months. Sensation and right arm and leg, described as heaviness, intermittent denies loss of function or sensation. CP described as sternal, intermittent, lasting from 30 minutes to 3 hours, described as tightness, associated with stress. CP at worst is associated with some shortness of breath. Patient states it is not exertional, does not get CP or SOB with exertion. Patient states she has 4 kids and is very active. Denies headache, focal deficits, trauma, fever, cough, sore throat, N/V/D, abdominal pain, change in urine, change in BM, vaginal symptoms. Medical history is none. - History of Current Complaint Chief Complaint: EDNeurologicalDeficit Stated Complaint: RT SIDE NUMBNESS Time Seen by Provider: 05/16/18 18:42 Hx Obtained From: Patient Hx Last Menstrual Period: 03/26/17 Onset/Duration: Gradual Onset Timing: Intermittent Episodes Lasting: Onset Severity: Moderate Current Severity: Mild Neurological Deficit Location: RUE, RLE Pain Intensity: 9 Pain Scale Used: 0-10 Numeric - Allergy/Home Medications Allergies/Adverse Reactions: Allergies Allergy/AdvReac Type Severity Reaction Status Date / Time amoxicillin Allergy Rash Verified 05/16/18 15:35 Penicillins Allergy Rash Verified 05/16/18 15:35 PMH/Surg Hx/FS Hx/Imm Hx Endocrine/Hematology History: Denies: Hx Anticoagulant Therapy, Hx Diabetes, Hx Thyroid Disease Cardiovascular History: Denies: Hx Cardiac Arrest, Hx Hypertension Respiratory History: Denies: Hx Asthma, Hx Chronic Obstructive Pulmonary Disease (COPD) GI History: Denies: Hx Ulcer History: Denies: Hx Dialysis Neurological History: Denies: Hx CVA - Surgical History Surgery Procedure, Year, and Place: none Infectious Disease History: No Infectious Disease History: Denies: Hx Clostridium Difficile, Hx Hepatitis, Hx Human Immunodeficiency Virus (HIV), Hx of Known/Suspected MRSA, Hx Shingles, Hx Tuberculosis, Hx Known/ Suspected VRE, Hx Known/Suspected VRSA, History Other Infectious Disease, Traveled Outside the [place] in Last 30 Days - Family History Known Family History: Positive: None - Pt denies any FMHX, Other - No FHx of blood clots Negative: Cardiac Disease, Hypertension, Respiratory Disease, Seizure Disorder - Social History Alcohol Use: Occasionally Hx Substance Use: No Substance Use Type: Reports: None Hx Tobacco Use: No Smoking Status (MU): Never Smoked Tobacco Have You Smoked in the Last Year: No Review of Systems Constitutional: Negative Eyes: Negative ENT: Negative Positive: Chest Pain Positive: Shortness Of Breath Gastrointestinal: Negative Genitourinary: Negative Musculoskeletal: Negative Skin: Negative Neurological: Negative Psychological: Normal All Other Systems Reviewed And Are Negative: Yes Physical Exam - Summary Physical Exam Summary: PMS intact right upper extremity and right lower extremity. Neuro exam normal. Motor function and diversional therapist's assistant strength normal on right upper extremity and right lower extremity. No evidence of ecchymosis, erythema, extra warmth, deformity, swelling to right upper extremity or right lower extremity. No twitching of right periorbital tissue noticed. No current chest pain. Triage Information Reviewed: Yes Vital Signs On Initial Exam: Initial Vitals Temp Pulse Resp BP Pulse Ox 99.4 F 80 16 133/81 100 05/16/18 15:33 05/16/18 15:33 05/16/18 15:33 05/16/18 15:33 05/16/18 15:33 Vital Signs Reviewed: Yes Appearance: Positive: Well-Appearing Skin: Positive: Warm Head/Face: Positive: Normal Head/Face Inspection Eyes: Positive: Normal Neck: Positive: Supple Respiratory/Lung Sounds: Positive: Clear to Auscultation Cardiovascular: Positive: Normal Abdomen Description: Positive: Nontender Musculoskeletal: Positive: Normal Neurological: Positive: Normal Psychiatric: Positive: Normal AVPU Assessment: Alert - Tamy Coma Scale Best Eye Response: 4 - Spontaneous Best Motor Response: 6 - Obeys Commands Best Verbal Response: 5 - Oriented Coma Scale Total: 15 Diagnostics - Vital Signs Vital Signs Temp Pulse Resp BP Pulse Ox 05/16/18 18:32 100 05/16/18 18:29 81 18 137/82 100 05/16/18 18:28 88 20 100 05/16/18 18:27 75 15 129/94 100 05/16/18 17:35 98.6 F 68 16 139/81 100 05/16/18 15:33 99.4 F 80 16 133/81 100 - Laboratory Lab Results: Lab Results 05/16/18 05/16/18 Range/Units 16:27 16:27 WBC 7.4 (3.5-10.8) 10^3/ul RBC 5.09 (4.00-5.40) 10^6/ul Hgb 11.8 L (12.0-16.0) g/dl Hct 38 (35-47) % MCV 74 L (80-97) fL MCH 23 L (27-31) pg MCHC 31 (31-36) g/dl RDW 18 H (10.5-15) % Plt Count 393 (150-450) 10^3/ul MPV 7.7 (7.4-10.4) um3 Neut % (Auto) 54.5 (38-83) % Lymph % (Auto) 35.4 (25-47) % [place] % (Auto) 8.2 H (0-7) % Eos % (Auto) 0.8 (0-6) % Baso % (Auto) 1.1 (0-2) % Absolute Neuts (auto) 4.0 (1.5-7.7) 10^3/ul Absolute Lymphs (auto) 2.6 (1.0-4.8) 10^3/ul Absolute Monos (auto) 0.6 (0-0.8) 10^3/ul Absolute Eos (auto) 0.1 (0-0.6) 10^3/ul Absolute Basos (auto) 0.1 (0-0.2) 10^3/ul Absolute Nucleated RBC 0 10^3/ul Nucleated RBC % 0.1 Sodium 139 (135-145) mmol/L Potassium 3.9 (3.5-5.0) mmol/L Chloride 107 (101-111) mmol/L Carbon Dioxide 24 (22-32) mmol/L Anion Gap 8 (2-11) mmol/L BUN 9 (6-24) mg/dL Creatinine 0.72 (0.51-0.95) mg/dL Est GFR ( Amer) 123.7 (>60) Est GFR (Non-Af Amer) 102.3 (>60) BUN/Creatinine Ratio 12.5 (8-20) Glucose 90 (70-100) mg/dL Calcium 9.8 (8.6-10.3) mg/dL Total Bilirubin 0.30 (0.2-1.0) mg/dL AST 15 (13-39) U/L ALT 10 (7-52) U/L Alkaline Phosphatase 51 (34-104) U/L Total Creatine Kinase 95 (10-223) U/L Total Protein 7.6 (6.4-8.9) g/dL Albumin 4.8 (3.2-5.2) g/dL Globulin 2.8 (2-4) g/dL Albumin/Globulin Ratio 1.7 (1-3) TSH 0.80 (0.34-5.60) mcIU/mL Result Diagrams: 05/16/18 16:27 05/16/18 16:27 Lab Statement: Any lab studies that have been ordered have been reviewed, and results considered in the medical decision making process. - Radiology cxr Xray Interpretation: No Acute Changes Radiology Interpretation Completed By: Radiologist Course/Dx - Course Course Of Treatment: Patient complains of right eye twitching, heaviness in right arm and right leg 3 days and intermittent chest pain times months. Sensation and right arm and leg, described as heaviness, intermittent denies loss of function or sensation. CP described as sternal, intermittent, lasting from 30 minutes to 3 hours, described as tightness, associated with stress. CP at worst is associated with some shortness of breath. Patient states it is not exertional, does not get CP or SOB with exertion. Patient states she has 4 kids and is very active. Denies headache, focal deficits, trauma, fever, cough , sore throat, N/V/D, abdominal pain, change in urine, change in BM, vaginal symptoms. Medical history is none. Physical exam: PMS intact right upper extremity and right lower extremity. Neuro exam normal. Motor function and diversional therapist's assistant strength normal on right upper extremity and right lower extremity. No evidence of ecchymosis, erythema, extra warmth, deformity, swelling to right upper extremity or right lower extremity. No twitching of right periorbital tissue noticed. No current chest pain. Labs and imaging unremarkable. Vital signs normal. Likely peripheral neuropathy. 3 day course of ibuprofen for neuropathy. Chest pain related to anxiety and stress. Vistaril for insomnia and anxiety. - Diagnoses Provider Diagnoses: Peripheral neuropathy, Atypical chest pain Discharge - Sign-Out/Discharge Documenting (check all that apply): Patient Departure - Discharge Plan Condition: Stable Disposition: HOME Prescriptions: hydrOXYzine pamoate [Vistaril] 50 - 100 mg PO BID 15 Days #30 capsule Patient Education Materials: Chest Pain (ED), Peripheral Neuropathy (ED), Anxiety (ED) Referrals: No Primary Care Phys,NOPCP [Primary Care Provider] - Additional Instructions: Take ibuprofen 600 mg three times a day for 4 days for numbness and tingling in right side. Take vistaril as directed for anxiety and insomnia. Follow-up with primary care. - Billing Disposition and Condition Condition: STABLE Disposition: Home
== END 2018-05-16 19:17 | disposition home or self-care (01) ==
LOC: ED 15:23
DX: G62.9 Polyneuropathy, unspecified (principal); R07.89 Other chest pain; R06.02 Shortness of breath
CPT/HCPCS: 36415; 71046; 80053; 82550; 84443; 85025; 93005; 99283; A9270-GY

== ENCOUNTER 2018-05-30 17:08 | Emergency (ER) | payer OTHER ==
[2018-05-30 17:17] VITALS: BP 140/75
--- NOTE | 2018-05-30 17:35 | UC ---
Laceration HPI - HPI Summary HPI Summary: 23 yo female presents for suture removal. She tells me that she was bitten by her dog on 05/21/18. Was evaluated and placed on anbx and two sutures were placed to bring the wound together. She has had no issues. No fever, chills, pain, or drainage from the wound - History Of Current Complaint Chief Complaint: UCLaceration Stated Complaint: SUTURE REMOVAL Time Seen by Provider: 05/30/18 17:10 Hx Obtained From: Patient Hx Last Menstrual Period: current Laceration Location: Arm Pain Intensity: 0 - Allergies/Home Medications Allergies/Adverse Reactions: Allergies Allergy/AdvReac Type Severity Reaction Status Date / Time amoxicillin Allergy Rash Verified 05/30/18 17:17 Penicillins Allergy Rash Verified 05/30/18 17:17 PMH/Surg Hx/FS Hx/Imm Hx - Additional Past Medical History Additional PMH: None Other History Of: Negative For: Anticoagulant Therapy - Surgical History Surgical History: None Surgery Procedure, Year, and Place: none - Family History Known Family History: Positive: Other - No FHx of blood clots Negative: Cardiac Disease, Hypertension, Respiratory Disease, Seizure Disorder - Social History Occupation: Employed Full-time Lives: With Family Alcohol Use: Occasionally Substance Use Type: None Smoking Status (MU): Never Smoked Tobacco Have You Smoked in the Last Year: No - Immunization History Most Recent Influenza Vaccination: 05/12/16 Most Recent Tetanus Shot: 2018 Most Recent Pneumonia Vaccination: none Review of Systems Constitutional: Negative Skin: Other - Sutures in place right arm Respiratory: Negative Cardiovascular: Negative Musculoskeletal: Negative Neurological: Negative Psychological: Negative All Other Systems Reviewed And Are Negative: Yes Physical Exam - Summary Physical Exam Summary: GENERAL: NAD. WDWN. No pain distress. SKIN: RIGHT arm: Two prolene sutures in place. Wound is well healed without erythema, drainage, or edema. NECK: Supple. Nontender. No lymphadenopathy. CHEST: No accessory muscle use. Breathing comfortably and in no distress. CV: Pulses intact. Cap refill <2seconds NEURO: Alert. PSYCH: Age appropriate behavior. Triage Information Reviewed: Yes Vital Signs: Initial Vital Signs Temp 99.0 F 05/30/18 17:13 Pulse 98 05/30/18 17:13 Resp 18 05/30/18 17:13 BP 140/75 05/30/18 17:13 Pulse Ox 99 05/30/18 17:13 Vital Signs Reviewed: Yes Laceration Course/Dx - Course/Dx Course Of Treatment: Two sutures removed from right arm. Pt tolerated well. - Differential Dx - Laceration/Wound Provider Diagnoses: Suture removal Discharge - Sign-Out/Discharge Documenting (check all that apply): Patient Departure All imaging exams completed and their final reports reviewed: No Studies - Discharge Plan Condition: Stable Disposition: HOME Patient Education Materials: Stitches Removal (ED) Referrals: No Primary Care Phys,NOPCP [Primary Care Provider] - Additional Instructions: If you develop a fever, shortness of breath, chest pain, new or worsening symptoms - please call your PCP or go to the ED. Your blood pressure was high at todays visit. Please see your primary provider within 4 weeks for recheck and re-evaluation. - Billing Disposition and Condition Condition: STABLE Disposition: Home
== END 2018-05-30 17:52 | disposition home or self-care (01) ==
LOC: UCEAST 17:08
DX: S41.111D Laceration without foreign body of right upper arm, subsequent encounter (principal); W54.0XXD Bitten by dog, subsequent encounter; Z88.0 Allergy status to penicillin
CPT/HCPCS: 99211; G0463

== ENCOUNTER 2019-03-18 13:32 | Emergency (ER) | payer BC, OTHER ==
[2019-03-18 13:50] VITALS: BP 132/79
[2019-03-18] MEDS ORDERED: Ketorolac INJ* 60 MG/2 ML VIAL IM ONE (13:57)
--- NOTE | 2019-03-18 14:07 | UC ---
Cardiac HPI - HPI Summary HPI Summary: patient is a 24-year-old female who presents to the urgent care with chief complaint of having sharp chest pain with radiation to the back. She reports that the pain is sharp, increases with movement of the upper extremities and inspiration. Patient denies any history of upper respiratory tract infections. She denies any history of trauma or heavy lifting. She denies any history of heart disease or any past medical history. She reports that the pain is about 7 out of 10. - History of Current Complaint Chief Complaint: UCChestPain Stated Complaint: NUMBNESS IN LEFT HAND Time Seen by Provider: 03/18/19 13:45 Hx Obtained From: Patient Hx Last Menstrual Period: nexplanon in place Onset/Duration: Sudden Onset Initial Severity: Mild Current Severity: Moderate Pain Intensity: 8 - Allergy/Home Medications Allergies/Adverse Reactions: Allergies Allergy/AdvReac Type Severity Reaction Status Date / Time amoxicillin Allergy Rash Verified 03/18/19 13:50 Penicillins Allergy Rash Verified 03/18/19 13:50 Home Medications: Home Medications Naproxen Sodium [Aleve] 1 tab PO ONCE PRN 03/18/19 [History Confirmed 03/18/19] PMH/Surg Hx/FS Hx/Imm Hx Previously Healthy: Yes Other History Of: Negative For: Anticoagulant Therapy - Surgical History Surgical History: None Surgery Procedure, Year, and Place: none - Family History Known Family History: Positive: Other - No FHx of blood clots Negative: Cardiac Disease, Hypertension, Respiratory Disease, Seizure Disorder - Social History Alcohol Use: Occasionally Substance Use Type: None Smoking Status (MU): Never Smoked Tobacco Have You Smoked in the Last Year: No - Immunization History Most Recent Influenza Vaccination: 05/12/16 Most Recent Tetanus Shot: 2018 Most Recent Pneumonia Vaccination: none Review of Systems All Other Systems Reviewed And Are Negative: Yes Constitutional: Positive: Negative Skin: Positive: Negative Eyes: Positive: Negative ENT: Positive: Negative Respiratory: Positive: Shortness Of Breath Cardiovascular: Positive: Chest Pain Gastrointestinal: Positive: Negative Genitourinary: Positive: Negative Motor: Positive: Negative Neurovascular: Positive: Negative Musculoskeletal: Positive: Negative Neurological: Positive: Negative Psychological: Positive: Negative Is Patient Immunocompromised?: No Physical Exam - Summary Physical Exam Summary: VITAL SIGNS: Reviewed. GENERAL: Patient is a well developed and nourished female who is sitting comfortable in the stretcher. Patient is not in any acute respiratory distress. HEAD AND FACE: Normocephalic and atraumatic. EYES: PERRLA, EOMI x 2, EARS: Hearing grossly intact. MOUTH: Oropharynx within normal limits. NECK: Supple, trachea is midline, no adenopathy, no JVD, no carotid bruit, no c- spine tenderness, neck with full ROM. CHEST: Symmetric, reproducible chest pain. LUNGS: CTA B/L. No wheezing or crackles. CVS: RRR, S1 and S2 present, no murmurs or gallops appreciated. ABDOMEN: Soft, NT, No distention. Normal BS. EXTREMITIES: FROM in all major joints, no edema, no cyanosis or clubbing. NEURO: Alert and oriented x 3. No acute neurological deficits. Speech is normal and follows commands. SKIN: Dry and warm Vital Signs: Initial Vital Signs Temp 99.3 F 03/18/19 13:46 Pulse 91 03/18/19 13:46 Resp 18 03/18/19 13:46 BP 132/79 03/18/19 13:46 Pulse Ox 99 03/18/19 13:46 Diagnostics - Radiology chest x-ray Radiology Interpretation Completed By: Radiologist Summary of Radiographic Findings: no acute cardiopulmonary disease. - EKG Cardiac Rate: NL Cardiac Rhythm: Sinus: Normal Ectopy: None ST Segment: Normal - Assessment/Plan Course Of Treatment: EKG is a normal sinus rhythm any purposeful minute without any stridor elevations. Chest x-ray impression: No acute pathology. The patient has reproducible chest pain likely secondary to muscular skeletal pain. Therefore the patient was given 1 dose of Toradol for the pain. the patient is not tachycardic, she is not hypoxic, and the chest pain is reproducible. The well's criteria for PE is equal to 0. Therefore have a low suspicion for a pulmonary embolus. The patient is not a smoker. Therefore I believe that the patient has muscular skeletal pain therefore she will be discharged home with a prescription for naproxen. However the patient was given instructions to go to the emergency room if she develops any shortness of breath, palpitations, or the chest pain does not improve. The patient understands and agrees. - Clinical Impression Provider Diagnosis: Atypical chest pain Discharge - Sign-Out/Discharge Documenting (check all that apply): Patient Departure All imaging exams completed and their final reports reviewed: Yes - Discharge Plan Condition: Improved Disposition: HOME Prescriptions: Naproxen TAB* [Naprosyn 250 mg TAB*] 500 mg PO BID PRN #20 tab PRN Reason: Pain Patient Education Materials: Chest Wall Pain (ED) Referrals: No Primary Care Phys,NOPCP [Primary Care Provider] - [facility] [Outside] Additional Instructions: Take medications as instructed Increase your fluid intake F/U with PCP in the next 2-3 days Return to the UC if symptoms worsen - Billing Disposition and Condition Condition: IMPROVED Disposition: Home
== END 2019-03-18 14:40 | disposition home or self-care (01) ==
LOC: UCEAST 13:32
DX: R07.89 Other chest pain (principal); R06.02 Shortness of breath; Z88.0 Allergy status to penicillin
CPT/HCPCS: 71046; 93005; 96372; 99212; G0463; J1885

== ENCOUNTER 2019-12-05 23:55 | Emergency (ER) | payer BC, OTHER ==
[2019-12-06] MEDS ORDERED: Ibuprofen TAB* 400 MG PO ONE (00:24)
--- NOTE | 2019-12-06 00:24 | ED ---
Abdominal Pain/Female - HPI Summary HPI Summary: 24 year old female presents to the ED with a chief complaint of left sided abdominal pain starting yesterday evening. Pain suddenly appeared. It initially felt like she had to pass a bowel movement, but the pain persisted until now. Pain is exacerbated by sitting up, and disturbed her sleep last night. Patient reports nausea but no vomiting, fever, or chest pain. BM is normal. Patient has never had similar pain before. No history of surgery on abdomen. Last period 3 days ago; patient has arm implant bc. - History of Current Complaint Chief Complaint: EDAbdPain Stated Complaint: ABD PAIN PER PT Time Seen by Provider: 12/06/19 00:16 Hx Obtained From: Patient Hx Last Menstrual Period: nexplanon in place ?: No Onset/Duration: Sudden Onset, Lasting Days Timing: Constant Severity Initially: Severe Severity Currently: Severe Pain Intensity: 9 Pain Scale Used: 0-10 Numeric Location: Discrete At: LUQ, Discrete At: LLQ Radiates: No Character: Cramping Aggravating Factor(s): Other: - sitting upright Alleviating Factor(s): Position Associated Signs and Symptoms: Positive: Nausea. Negative: Fever, Chest Pain, Vomiting, Diarrhea Allergies/Adverse Reactions: Allergies Allergy/AdvReac Type Severity Reaction Status Date / Time amoxicillin Allergy Rash Verified 12/06/19 21:16 Penicillins Allergy Rash Verified 12/06/19 21:16 Home Medications: Home Medications Ibuprofen TAB* [Motrin TAB* 600 MG] 600 mg PO Q8H PRN #20 tab 03/18/19 [Rx Confirmed 12/06/19] PMH/Surg Hx/FS Hx/Imm Hx Endocrine/Hematology History: Denies: Hx Anticoagulant Therapy, Hx Diabetes, Hx Thyroid Disease Cardiovascular History: Denies: Hx Cardiac Arrest, Hx Hypertension Respiratory History: Denies: Hx Asthma, Hx Chronic Obstructive Pulmonary Disease (COPD) GI History: Denies: Hx Ulcer History: Denies: Hx Dialysis Neurological History: Denies: Hx CVA - Surgical History Surgical History: None Surgery Procedure, Year, and Place: none Infectious Disease History: No Infectious Disease History: Denies: Hx Clostridium Difficile, Hx Hepatitis, Hx Human Immunodeficiency Virus (HIV), Hx of Known/Suspected MRSA, Hx Shingles, Hx Tuberculosis, Hx Known/ Suspected VRE, Hx Known/Suspected VRSA, History Other Infectious Disease, Traveled Outside the [place] in Last 30 Days - Family History Known Family History: Positive: Other - No FHx of blood clots Negative: Cardiac Disease, Hypertension, Respiratory Disease, Seizure Disorder - Social History Alcohol Use: Occasionally Hx Substance Use: No Substance Use Type: Reports: None Hx Tobacco Use: No Smoking Status (MU): Never Smoked Tobacco Have You Smoked in the Last Year: No Review of Systems Negative: Fever Negative: Chest Pain Positive: Abdominal Pain, Nausea. Negative: Vomiting, Diarrhea All Other Systems Reviewed And Are Negative: Yes Physical Exam - Summary Physical Exam Summary: Appearance: Well-appearing, Well-nourished, lying in bed comfortably Skin: Warm, dry, no obvious rash Eyes: sclera anicteric, no conjunctival pallor HENT: mucous membranes moist, pharynx appears normal Neck: Supple, nontender Respiratory: Clear to auscultation, no signs of respiratory distress Cardiovascular: Normal S1, S2. No murmurs. Normal distal pulses in tibial and radial bilaterally. Abdomen: Soft, normal active bowel sounds present. Tenderness on left side of abdomen. No CVA tenderness. Musculoskeletal: Normal, Strength/ROM Intact Neurological: A&Ox3, awake and alert, mentation is normal, speech is fluent and appropriate Psychiatric: affect is normal, does not appear anxious or depressed Triage Information Reviewed: Yes Vital Signs On Initial Exam: Initial Vitals Temp Pulse Resp BP Pulse Ox 97.2 F 95 18 140/90 98 12/05/19 23:57 12/05/19 23:57 12/05/19 23:57 12/05/19 23:57 12/05/19 23:57 Vital Signs Reviewed: Yes Procedures - Sedation Patient Received Moderate/Deep Sedation with Procedure: No Diagnostics - Vital Signs Vital Signs Temp Pulse Resp BP Pulse Ox 12/05/19 23:57 97.2 F 95 18 140/90 98 - Laboratory Result Diagrams: 12/06/19 00:40 12/06/19 00:40 Lab Statement: Any lab studies that have been ordered have been reviewed, and results considered in the medical decision making process. Abdominal Pain Fem Course/Dx - Course Course Of Treatment: 24 year old female presents to the ED with a chief complaint of left sided abdominal pain starting yesterday evening. Pain suddenly appeared. It initially felt like she had to pass a bowel movement, but the pain persisted until now. Pain is exacerbated by sitting up, and disturbed her sleep last night. Patient reports nausea but no vomiting, fever, or chest pain. BM is normal. Patient has never had similar pain before. No history of surgery on abdomen. Last period 3 days ago; patient has arm implant bc. Physicial exam shows tenderness on the left side of the abdomen but no CVA tenderness. Laboratory results are unremarkable. Diagnosis is acute abdominal pain. Patient will be discharged home with instructions to visit her PCP in 2-3 days. Patient understands and agrees with this plan. - Diagnoses Provider Diagnoses: Acute abdominal pain Is Visit Related: No Discharge ED - Sign-Out/Discharge Documenting (check all that apply): Patient Departure - discharge home - Discharge Plan Condition: Stable Disposition: HOME Patient Education Materials: Acute Abdominal Pain (ED) Referrals: Care [facility] [Outside] - If Needed Additional Instructions: If the pain is worsening over the weekend you should come back here and we would likely get an ultrasound scan done to help diagnose the problem definitively. Be alert for changes in your condition, for example the pain moving somewhere else, or new symptoms coming on. - Billing Disposition and Condition Condition: STABLE Disposition: Home - Attestation Statements Document Initiated by Zayraibe: Yes Documenting Scribe: Santi Rosas Provider For Whom Ever is Documenting (Include Credential): Dr. Maxwell Gardner Scribcarey Attestation: Santi Lawson, scribed for Dr. Maxwell Gardner on 12/09/19 at 2318. Scribe Documentation Reviewed: Yes Provider Attestation: The documentation as recorded by the scribe, Santi Rosas accurately reflects the service I personally performed and the decisions made by me, Dr. Maxwell Gardner Status of Scribe Document: Viewed
[2019-12-06] MEDS ORDERED: oxyCODONE/Acetamin 5/325 MG* TAB PO ONE (00:25)
[2019-12-06 00:56] LABS: Urine Appearance Clear; Urine Bilirubin Negative (Negative); Urine Blood Negative (Negative); Urine Color Colorless; Urine Glucose Negative (Negative); Urine Ketones Negative (Negative); Urine Nitrite Negative (Negative); Urine Protein Negative (Negative); Urine Specific Gravity 1.004 (1.010-1.030); Urine Urobilinogen Negative (Negative)
[2019-12-06 00:57] LABS: ABS Basophils 0.1 10^3/ul (0-0.2); ABS Eosinophils 0.1 10^3/ul (0-0.6); ABS Lymphocytes 2.6 10^3/ul (1.0-4.8); ABS Monocytes 0.7 10^3/ul (0-0.8); ABS Neutrophils 4.5 10^3/ul (1.5-7.7); Eosinophil % 1.6 %; Hematocrit 41 % (35-47); Lymphocyte % 32.6 %; Mean Corpuscular HGB Conc 34 g/dL (31-36); Mean Corpuscular Hemoglobin 30 pg (27-31); Mean Corpuscular Volume 88 fL (80-97); Mean Platelet Volume 7.3 fL (7.4-10.4); Platelet Count 313 10^3/uL (150-450); Red Cell Distribution Width 13 % (10-15)
[2019-12-06 01:07] LABS: Albumin 4.4 g/dL (3.2-5.2); Albumin/Globulin Ratio 1.5 (1-3); BUN/Creatinine Ratio 16.3 (8-20); C Reactive Protein 3.29 mg/L (<8.01); Calcium 9.7 mg/dL (8.6-10.3); EGFR African American 108.5 (>60); EGFR Non-African American 89.7 (>60); Globulin 2.9 g/dL (2-4); Potassium 3.6 mmol/L (3.5-5.0); Total Bilirubin 0.2 mg/dL (0.2-1.0); Total Protein 7.3 g/dL (6.4-8.9)
[2019-12-06 01:20] VITALS: BP 130/81
[2019-12-06 17:46] LABS: Chlamydia trachomatis NAA Negative (Negative); Neisseria gonorrhoeae (GC) NAA Negative (Negative)
== END 2019-12-06 01:19 | disposition home or self-care (01) ==
LOC: ED 23:55
DX: R10.9 Unspecified abdominal pain (principal); R11.0 Nausea; Z88.0 Allergy status to penicillin
CPT/HCPCS: 36415; 80053; 81003; 83690; 85025; 86140; 87491; 87591; 99282; A9270-GY

== ENCOUNTER 2019-12-06 19:36 | Emergency (ER) | payer OTHER ==
[2019-12-06 21:27] LABS: ABS Basophils 0.1 10^3/ul (0-0.2); ABS Eosinophils 0.1 10^3/ul (0-0.6); ABS Lymphocytes 2.5 10^3/ul (1.0-4.8); ABS Monocytes 0.6 10^3/ul (0-0.8); ABS Neutrophils 6.7 10^3/ul (1.5-7.7); Eosinophil % 0.6 %; Hematocrit 44 % (35-47); Hemoglobin 15.3 g/dL (12.0-16.0); Lymphocyte % 25.5 %; Mean Corpuscular HGB Conc 35 g/dL (31-36); Mean Corpuscular Hemoglobin 30 pg (27-31); Mean Corpuscular Volume 87 fL (80-97); Mean Platelet Volume 7.3 fL (7.4-10.4); Nucleated Red Blood Cells % 0.1; Platelet Count 386 10^3/uL (150-450); Red Blood Count 5.04 10^6 /uL (3.70-4.87); Red Cell Distribution Width 13 % (10-15); White Blood Count 9.9 10^3/uL (3.5-10.8)
--- NOTE | 2019-12-06 21:37 | ED ---
Abdominal Pain/Female - HPI Summary HPI Summary: Patient is a 24 year-old female presenting to [facility] with a chief complaint of left lateral abdominal pain onset 12/03/2019. She reports that she has been experiencing left-sided abdominal pain for a few days and had come to the ED last night with negative blood work and urinalysis. The pain was mild throughout today but had worsened tonight as it began to radiate into the medial abdomen and back causing increased nausea, chills, and diaphoresis. She endorses some episodes of diarrhea since onset. She denies any vomiting or fevers. She has taken Tylenol and Ibuprofen to no relief of the pain, which is currently rated 10/10 in severity. There are no aggravating or alleviating factors. LNMP: two weeks ago, control implant. Past medical history includes kidney infection as a child. Nonsmoker, occasional EtOH, no substance use. Medications reviewed. Allergies noted. - History of Current Complaint Chief Complaint: EDAbdPain Stated Complaint: ABD PAIN PER PT Time Seen by Provider: 12/06/19 20:52 Hx Obtained From: Patient Hx Last Menstrual Period: nexplanon in place Onset/Duration: Lasting Days, Still Present, Worse Since - tonight Timing: Constant - waxing and waning Severity Initially: Moderate Severity Currently: Severe Pain Intensity: 10 Pain Scale Used: 0-10 Numeric Location: Other - left lateral abdomen Radiates: Yes Radiates to: Back, Other - middle of abdomen Character: Sharp Aggravating Factor(s): Nothing Alleviating Factor(s): Nothing Associated Signs and Symptoms: Positive: Nausea, Diarrhea, Other: - chills, diaphoresis. Negative: Fever, Vomiting Allergies/Adverse Reactions: Allergies Allergy/AdvReac Type Severity Reaction Status Date / Time amoxicillin Allergy Rash Verified 12/06/19 21:16 Penicillins Allergy Rash Verified 12/06/19 21:16 Home Medications: Home Medications Ibuprofen TAB* [Motrin TAB* 600 MG] 600 mg PO Q8H PRN #20 tab 03/18/19 [Rx Confirmed 12/06/19] PMH/Surg Hx/FS Hx/Imm Hx Endocrine/Hematology History: Denies: Hx Anticoagulant Therapy, Hx Diabetes, Hx Thyroid Disease Cardiovascular History: Denies: Hx Cardiac Arrest, Hx Hypertension Respiratory History: Denies: Hx Asthma, Hx Chronic Obstructive Pulmonary Disease (COPD) GI History: Denies: Hx Ulcer History: Reports: Hx Kidney Infection - when child Denies: Hx Dialysis Neurological History: Denies: Hx CVA - Surgical History Surgical History: None Surgery Procedure, Year, and Place: none Infectious Disease History: No Infectious Disease History: Denies: Hx Clostridium Difficile, Hx Hepatitis, Hx Human Immunodeficiency Virus (HIV), Hx of Known/Suspected MRSA, Hx Shingles, Hx Tuberculosis, Hx Known/ Suspected VRE, Hx Known/Suspected VRSA, History Other Infectious Disease, Traveled Outside the [place] in Last 30 Days - Family History Known Family History: Positive: Other - No FHx of blood clots Negative: Cardiac Disease, Hypertension, Respiratory Disease, Seizure Disorder - Social History Alcohol Use: Occasionally Hx Substance Use: No Substance Use Type: Reports: None Hx Tobacco Use: No Smoking Status (MU): Never Smoked Tobacco Have You Smoked in the Last Year: No - Additional Comments History Additional Comments: kidney infection as child, no other past medical history Review of Systems - ROS Summary Review of Systems Summary: Home Medications Medication Instructions Recorded Confirmed Type Ibuprofen TAB* [Motrin TAB* 600 MG] 600 mg PO Q8H PRN #20 tab 03/18/19 12/06/19 Rx Positive: Chills, Skin Diaphoresis. Negative: Fever Positive: Abdominal Pain - left side into medial abdomen, Nausea. Negative: Vomiting, Diarrhea Positive: Myalgia - left back radiating from abdomen All Other Systems Reviewed And Are Negative: Yes Physical Exam - Summary Physical Exam Summary: General: Well-developed, Well-nourished female. Appears in mild discomfort at rest. HEENT: Normocephalic, Atraumatic. Eyes: Conjuctiva normal, PERRL. Oropharynx: Clear, mucous membranes moist, (-) exudates. Neck: Soft, FROM, (-) lymphadenopathy, (-) thyromegaly, (-) JVD. Cardiovascular: Normal sinus rhythm, (-) murmur. Lungs: Clear to auscultation bilaterally (-) wheezes, (-) rales, (-) rhonchi. Abdomen: Soft, left lateral tenderness, non-distended, (-) organomegaly, normal bowel sounds. Back: (+) Mild left CVA tenderness Extremities: No edema. Skin: Warm, dry, (-) rash. Neuro: Alert and oriented x3, moves all extremities equally. No ataxia. No gait disturbance. No sensory deficit. Normal strength, normal sensation. Psychiatric: Mood normal, affect normal. Triage Information Reviewed: Yes Vital Signs On Initial Exam: Initial Vitals Temp Pulse Resp BP Pulse Ox 98.5 F 82 16 140/82 100 12/06/19 19:39 12/06/19 19:39 12/06/19 19:39 12/06/19 19:39 12/06/19 19:39 Vital Signs Reviewed: Yes Procedures - Sedation Patient Received Moderate/Deep Sedation with Procedure: No Diagnostics - Vital Signs Vital Signs Temp Pulse Resp BP Pulse Ox 12/06/19 19:39 98.5 F 82 16 140/82 100 - Laboratory Result Diagrams: 12/06/19 21:14 12/06/19 21:14 Lab Statement: Any lab studies that have been ordered have been reviewed, and results considered in the medical decision making process. - CT Abd/Pel CT CT Interpretation Completed By: Radiologist Summary of CT Findings: Impression: No acute finding. Dominant follicle in left ovary measuring 6 mm. This report was reviewed by Dr. Olvera. Re-Evaluation - Re-Evaluation First Eval Re-Evaluation Time: 23:00 Comment: I discussed all results. Discussed all symptoms that warrant return to the ED. Abdominal Pain Fem Course/Dx - Course Course Of Treatment: 24-year-old female presents from home with abdominal pain. Patient states her pain started Monday. Describes in her left lateral abdomen. Goes around to her left back. Was seen here overnight for this. Has been taking Tylenol and ibuprofen without relief. Denies any vomiting or diarrhea. No urinary symptoms. No fevers. Patient has mild left lateral abdominal pain. No CVA tenderness. Vitals are normal. Workup essentially negative. CT scan demonstrates a left ovarian cyst. Discussed at length with patient. Given Toradol and Zofran in the emergency room. Advised Aleve at home. Follow up with PCP. Follow sooner for any worsening symptoms. Patient received Zofran and Toradol in the ED. - Diagnoses Provider Diagnoses: Ovarian cyst, Abdominal pain Discharge ED - Sign-Out/Discharge Documenting (check all that apply): Patient Departure - Patient will be discharged home. - Discharge Plan Condition: Stable Disposition: HOME Patient Education Materials: Ovarian Cyst (ED), Acute Abdominal Pain (DC) Referrals: Care [facility] [Outside] - 3 Days Additional Instructions: Follow up with your primary care provider in 2-3 days. Return to the emergency department for any new or worsening symptoms. - Billing Disposition and Condition Condition: STABLE Disposition: Home - Attestation Statements Document Initiated by Ever: Yes Documenting Scribe: Brigitte Trevizo Provider For Whom Ever is Documenting (Include Credential): Marilyn Olvera MD Scribe Attestation: IBrigitte, scribed for Marilyn Olvera MD on 12/06/19 at 2337. Scribe Documentation Reviewed: Yes Provider Attestation: The documentation as recorded by the Brigitte moya accurately reflects the service I personally performed and the decisions made by me, Marilyn Olvera MD Status of Scribe Document: Viewed
[2019-12-06 21:42] LABS: Urine Appearance Clear; Urine Bilirubin Negative (Negative); Urine Blood Negative (Negative); Urine Color Straw; Urine Glucose Negative (Negative); Urine Ketones Negative (Negative); Urine Nitrite Negative (Negative); Urine Protein Negative (Negative); Urine Urobilinogen Negative (Negative)
[2019-12-06 21:47] LABS: ALT 11 U/L (7-52); AST 15 U/L (13-39); Albumin 5.1 g/dL (3.2-5.2); Albumin/Globulin Ratio 1.6 (1-3); Alkaline Phosphatase 47 U/L (34-104); Anion Gap 9 mmol/L (2-11); BUN/Creatinine Ratio 11.1 (8-20); Blood Urea Nitrogen 8 mg/dL (6-24); C Reactive Protein 2.54 mg/L (<8.01); CO2 Carbon Dioxide 24 mmol/L (22-32); Calcium 9.9 mg/dL (8.6-10.3); Chloride 105 mmol/L (101-111); EGFR African American 122.6 (>60); EGFR Non-African American 101.3 (>60); Globulin 3.2 g/dL (2-4); Glucose 96 mg/dL (70-100); Potassium 3.5 mmol/L (3.5-5.0); Sodium 138 mmol/L (135-145); Total Protein 8.3 g/dL (6.4-8.9)
[2019-12-06 21:51] LABS: HCG Pregnancy < 0.60 mIU/mL
[2019-12-06] MEDS ORDERED: Iohexol 300* (CONTRAST) 10 ML SDV IV ONE (22:04)
[2019-12-06] MEDS ORDERED: Ondansetron INJ* 2 MG/ML VIAL IV ONE (22:58)
[2019-12-06] MEDS ORDERED: Ketorolac INJ* 30 MG/ML 1 ML VIAL IV PUSH ONE (22:58)
[2019-12-06 23:28] VITALS: BP 127/88
== END 2019-12-06 23:28 | disposition home or self-care (01) ==
LOC: ED 19:36
DX: N83.209 Unspecified ovarian cyst, unspecified side (principal); R11.0 Nausea; R19.7 Diarrhea, unspecified; Z88.0 Allergy status to penicillin
CPT/HCPCS: 36415; 74177; 80053; 81003; 83605; 83690; 84702; 85025; 86140; 87040; 99282; J1885; J2405; Q9967